=== PATIENT | female | born 1980 | race American Indian/Alaskan Native ===

== ENCOUNTER 2018-04-12 21:03 | Emergency (ER) | payer MEDICAID ==
[2018-04-12 21:34] VITALS: O2SAT 100
[2018-04-12] MEDS ORDERED: Tetracaine 0.5% Ophth 2 ML BOTTLE ONE (21:56)
[2018-04-12] MEDS ORDERED: PROPARACAINE/FLUORESCEIN SOD 100 DROP/5 ML BOTTLE ONE (22:07)
--- NOTE | 2018-04-12 22:43 | ED PDOC ---
HPI: Eye Injury/Pain Time Seen by Provider: 04/12/18 21:36 Chief Complaint (Nursing): Headache Chief Complaint (Provider): LEFT eye pain History Per: Patient History/Exam Limitations: no limitations Onset/Duration Of Symptoms: Days (2) Current Symptoms Are (Timing): Constant Quality: "Pain" Associated Symptoms: Discharge From Eye Additional Complaint(s): 30 weeks pain LEFT eye for 2 days constant severe seen at [facility] and advised to see dentist due to ongoing issues with tooth left upper that needs to be pulled. She had tooth pulled but has no improvement. Pain worse with any light and opening of eye. She stopped using her contacts at onset with no improvement as well. OB: [facility] Past Medical History Reviewed: Historical Data, Nursing Documentation, Vital Signs Vital Signs: Last Vital Signs Temp 98.0 F 04/12/18 21:30 Pulse 103 H 04/12/18 21:30 Resp 16 04/12/18 21:30 BP 128/84 04/12/18 21:30 Pulse Ox 100 04/12/18 21:30 - Medical History PMH: No Chronic Diseases - Surgical History Surgical History: No Surg Hx - Family History Family History: States: No Known Family Hx - Social History Current smoker - smoking cessation education provided: No Ex-Smoker (has not smoked in the last 12 months): No Drugs: Denies - Home Medications Home Medications: Ambulatory Orders Medication Instructions Recorded Polymyxin/Trimethoprim Sulfate 2 drop OS QID #10 bottle 04/12/18 [Polytrim Ophth Soln] - Allergies Allergies/Adverse Reactions: Allergies Allergy/AdvReac Type Severity Reaction Status Date / Time No Known Allergies Allergy Verified 04/12/18 21:30 Review of Systems ROS Statement: Except As Marked, All Systems Reviewed And Found Negative Constitutional: Negative for: Fever, Chills Eyes: Positive for: Pain, Redness. Negative for: Vision Change, Eyelid Inflammation Physical Exam - Reviewed Nursing Documentation Reviewed: Yes Vital Signs Reviewed: Yes - Physical Exam Appears: Positive for: Uncomfortable, In Acute Distress Head Exam: Positive for: ATRAUMATIC, NORMOCEPHALIC Skin: Positive for: Warm, Dry Eye Exam: Positive for: EOMI, PERRL, Conjunctival injection (LEFT eye), Other ( pinpoint lesion visible on cornea 4 o' clock position, no FB seen.) ENT: Negative for: Sinus Pain/Drainage Neck: Positive for: Painless ROM, Supple Lymphatic: Negative for: Adenopathy Neurologic/Psych: Positive for: Alert. Negative for: Motor/Sensory Deficits - ECG O2 Sat by Pulse Oximetry: 100 Disposition - Clinical Impression Clinical Impression: Corneal abrasion Counseled Patient/Family Regarding: Studies Performed, Diagnosis - Disposition Referrals: Will Valdez MD [Staff Provider] - 04/13/18 (CALL TOMORROW TO SCHEDULE APPOINTMENT IN 24-48 HOURS) Disposition: Routine/Home Disposition Time: 22:00 Condition: STABLE Prescriptions: Polymyxin/Trimethoprim Sulfate [Polytrim Ophth Soln] 2 drop OS QID #10 bottle Instructions: Corneal Abrasion
[2018-04-12 23:11] VITALS: BP 122/83; PULSE 95; RESP 18; TEMP 98.4
== END 2018-04-12 23:05 | disposition home or self-care (01) ==
LOC: H.ER 21:03
DX: S05.02XA Injury of conjunctiva and corneal abrasion without foreign body, left eye, initial encounter (principal); Y92.89 Other specified places as the place of occurrence of the external cause; Z33.1 Pregnant state, incidental